=== PATIENT | female | born 1990 | race Caucasian/White ===

== ENCOUNTER 2018-04-23 06:43 | Inpatient (IN) | payer OTHER ==
--- NOTE | 2018-04-23 08:17 | HP ---
General Information - Reason for Visit SROM, active labor - General Information Maternal Age: 27 Grav: 1 Para: 0 SAB: 0 IEA: 0 Estimated Due Date: 05/13/18 Determined By: LMP Maternal Blood Type and Rh: A Positive - Results this Serology/RPR Result: Non-Reactive Rubella Result: Immune HBsAg Result: Negative HIV Result: Negative GBS Culture Result: Negative Past Medical History Delivery History: See Records - Pertinent Past Medical History: See Records - hypothyroidism Pertinent Past Surgical History: See Records - wisdom tooth extraction Pertinent Family History: Non-Contributory - Antepartal Records Antepartal Records: Reviewed, Complicated by: - hypothyroidism, GDM Review of Systems Constitutional: Uncomfortable - contractions CV Complaint: No Respiratory: Shortness of Breath: No Gastrointestinal: Normal Bowel Movement, Nausea Genitourinary: Leaking Fluid, No Dysuria, No Bleeding Musculoskeletal: No Epigastric Pain, Contractions Neurological: No Headache, No Visual Changes Movement: Normal Exam Allergies/Adverse Reactions: Allergies No Known Allergies Allergy (Verified 04/20/18 13:01) T- 98.0, P-94, R-20, BP- 105/78, O2- 99% - Measurements Height: 5 ft 2 in Weight: 89.811 kg Weight in lbs: 198.673647 Body Mass Index (BMI): 36.2 Pre- Weight: 74.843 kg Weight Gained This : 33 lbs and 0 ozs - Exam Breast: Breast Exam Deferred CVA: No CVA Tenderness Extremities: Edema - mild bilateral pedal edema Heart: Normal Rhythm/Heart Sounds HEENT: No Significant Findings Lungs: Clear Bilaterally Rectal: Rectal Exam Deferred - large hemorrhoid visible, non-thrombosed Reflexes: DTR 2+ Thyroid: No Thyromegaly - Abdominal Exam Abdomen Exam: Non-Tender, Fundal Height Consistent with Dates - Ultrasound/Biophysical Profile Ultrasound Status: Not Done Targeted Exam Findings See L&D Outpatient Visit Provider Note for Findings: N/A Estimated Weight: 8# Cervical Exam: 7cm - on arrival Effacement: 100% Station: +1 Presenting Part: Vertex Membrane Status: SROM Amniotic Fluid Evaluation: Gross Rupture Bleeding/Discharge: None EFM Findings - External Monitor Findings Baseline Heart Rate: 120 External Monitor Findings: Accelerations Present, No Pattern of Variable or Late Decelerations - occasional small variable decels, Variability Moderate, Baseline Stable Contractions: Regular, Strong, >90 Seconds Contraction Frequency: 2-3 minutes Assessment/Plan - Assessment 27 year old at 37 1/7 weeks gestation with hx hypothyroidism and GDM in active labor with SROM of clear fluid, no evidence of acidemia - Obstetrical Risk Factors Obstetrical Risk Factors: Gestational Diabetes - Plan Plan: Admit - Anticipate Vaginal Delivery - Date/Time of Admission Date of Admission: 04/23/18 Time of Admission: 07:14
[2018-04-23] MEDS ORDERED: Witch Hazel PAD* JAR TOPICAL PRN (09:08)
[2018-04-23] MEDS ORDERED: OXYTOCIN* 10 UNITS/ML 1 ML VIAL IM ONE (09:08)
[2018-04-23] MEDS ORDERED: Glycerin ADULT SUPP PR PRN (09:08)
[2018-04-23] MEDS ORDERED: Dibucaine 1% 28.35 GM TUBE PR PRN (09:08)
--- NOTE | 2018-04-23 09:25 | PROCNOTE ---
[facility] OB: Delivery Note - Delivery A Date of : 04/23/18 Time of : 08:33 [place] Sex: Male Score 1 Minute: 9 Score 5 Minutes: 9 Gestational Age in Weeks and Days at Delivery: 37 Weeks and 1 Days Delivery Method: Spontaneous Vaginal Labor: Spontaneous Did Patient attempt ?: N/A, No Previous Amniotic Fluid: Clear Estimated Blood Loss: 300 Anesthesia/Analgesia: Nitrous-Labor Delivered By: Tico Villela - Nursery Level of Nursery: Regular/Bedside - Perineum Perineal Injury: 2nd Degree Perineal Injury Comment: repaired with 3-0 polysorb under local infiltration 1% lidocaine Perineal Repair: By Delivering Practioner - Events Delivery Events of Note: Pitocin Only After Delivery - 10 units IM pitocin after delivery - Additional Delivery Notes Additional Delivery Notes: Pt admitted in active labor following spontaneous rupture of membranes to clear fluid. Expected progression to complete. Pushed x 40 min to liveborn male. Slow, controlled delivery of head. ALEXSANDER to LOT. Tight shoulders followed with strong maternal push in Neptali. Cord around shoulder x 1 looped off after delivery. vigorous with spontaneous cry. HR > 110bpm. Delivered to maternal abdomen. Cord clamped x 2 and cut by FOB when pulsations ceased. Spontaneous delivery intact placenta. 3VC. Membranes complete. Fundus firm to massage but atonic when hand removed. 10units IM pitocin given. Fundus firm to massage and remained firm. Repair as above. EBL 300mL. At time of note mother and infant in stable condition. Planning to breast feed.
[2018-04-23] MEDS: Ibuprofen TAB* 600 MG PO PRN ×3 (09:27→21:45)
[2018-04-23] MEDS: Levothyroxine TAB* 25 MCG TAB PO SCH (12:30)
[2018-04-23] MEDS ORDERED: Simethicone TAB* 80 MG TAB.CHEW PO SCH (12:30)
[2018-04-23] MEDS: Docusate CAP* 100 MG PO SCH ×2 (14:30→21:45)
[2018-04-23] MEDS: Acetaminophen TAB* 325 MG PO PRN (18:08)
[2018-04-24] MEDS: Ibuprofen TAB* 600 MG PO PRN ×3 (05:16→20:29)
[2018-04-24 07:31] LABS: ABS Basophils 0 10^3/ul (0-0.2); ABS Eosinophils 0.2 10^3/ul (0-0.6); ABS Lymphocytes 2.8 10^3/ul (1.0-4.8); ABS Monocytes 0.9 10^3/ul (0-0.8); ABS Neutrophils 8.1 10^3/ul (1.5-7.7); ABS Nucleated RBC 0 10^3/ul; Eosinophil % 1.9 % (0-6); Hematocrit 29 % (35-47); Hemoglobin 9.9 g/dl (12.0-16.0); Lymphocyte % 23.2 % (25-47); Mean Corpuscular HGB Conc 34 g/dl (31-36); Mean Corpuscular Hemoglobin 28 pg (27-31); Mean Corpuscular Volume 83 fL (80-97); Mean Platelet Volume 7.5 um3 (7.4-10.4); Nucleated Red Blood Cells % 0.1; Platelet Count 212 10^3/ul (150-450); Red Blood Count 3.47 10^6/ul (4.00-5.40); Red Cell Distribution Width 14 % (10.5-15); White Blood Count 12.1 10^3/ul (3.5-10.8)
[2018-04-24] MEDS: Ferrous Gluconate TAB* 324 MG TAB PO SCH ×2 (09:13→20:29)
[2018-04-24] MEDS: Levothyroxine TAB* 25 MCG TAB PO SCH (09:13)
[2018-04-24] MEDS: Docusate CAP* 100 MG PO SCH ×3 (09:13→20:29)
[2018-04-25 08:12] VITALS: BP 119/66
[2018-04-25] MEDS: Acetaminophen TAB* 325 MG PO PRN (08:49)
[2018-04-25] MEDS: Ferrous Gluconate TAB* 324 MG TAB PO SCH (08:50)
[2018-04-25] MEDS: Docusate CAP* 100 MG PO SCH (08:50)
[2018-04-25] MEDS: Levothyroxine TAB* 25 MCG TAB PO SCH (08:50)
== END 2018-04-25 13:10 | disposition home or self-care (01) | DRG 807 ==
LOC: MCHOBOUT 06:43 → MCHOB 07:14
PROVIDERS: ADMIT Midwife; ATTEND Midwife
PROC: 10E0XZZ Delivery of Products of Conception, External Approach (ICD-10-PCS; principal; 2018-04-23)
PROC: 0KQM0ZZ Repair Perineum Muscle, Open Approach (ICD-10-PCS; 2018-04-23)
DX: O60.23X1 Term delivery with preterm labor, third trimester, fetus 1 (principal); Z37.0 Single live birth; O24.429 Gestational diabetes mellitus in childbirth, unspecified control; O75.89 Other specified complications of labor and delivery; O99.284 Endocrine, nutritional and metabolic diseases complicating childbirth; E03.9 Hypothyroidism, unspecified; O70.1 Second degree perineal laceration during delivery; O69.89X0 Labor and delivery complicated by other cord complications, not applicable or unspecified; Z3A.37 37 weeks gestation of pregnancy
CPT/HCPCS: 36415; 85025; A9270-GY; J2590

== ENCOUNTER 2020-07-07 20:10 | Inpatient (IN) ==
[2020-07-07] MEDS ORDERED: Lactated Ringers 1000 ml BAG 1,000 ML IV ONE (20:45)
[2020-07-07] MEDS ORDERED: Buffered Lidocaine 1% SYRIN 1 ml INTRADERM ONE (20:45)
[2020-07-07] MEDS ORDERED: Lactated Ringers 1000 ml BAG 1,000 ML IV SCH ×2 (21:00→23:45)
[2020-07-07 22:22] LABS: Urine Benzodiazepine Screen None Detected (None Detect); Urine Cannabinoids Screen None Detected (None Detect); Urine Opiates Screen None Detected (None Detect)
[2020-07-07 22:36] LABS: ABS Basophils 0.1 10^3/ul (0-0.2); ABS Eosinophils 0.1 10^3/ul (0-0.6); ABS Lymphocytes 1.8 10^3/ul (1.0-4.8); ABS Monocytes 0.9 10^3/ul (0-0.8); Hematocrit 36 % (35-47); Lymphocyte % 16.7 %; Mean Corpuscular HGB Conc 34 g/dL (31-36); Mean Corpuscular Hemoglobin 25 pg (27-31); Mean Corpuscular Volume 73 fL (80-97); Mean Platelet Volume 8.4 fL (7.4-10.4); Platelet Count 297 10^3/uL (150-450); Red Blood Count 4.91 10^6 /uL (3.70-4.87); Red Cell Distribution Width 15 % (10-15); White Blood Count 10.9 10^3/uL (3.5-10.8)
[2020-07-07] MEDS ORDERED: Oxytocin in LR 0 UNITS/0 ML BAG IVPB ONE (22:41)
[2020-07-07] MEDS ORDERED: Witch Hazel PAD JAR TOPICAL PRN (23:53)
[2020-07-07] MEDS ORDERED: Dibucaine 1% OINT 28.35 GM TUBE PR PRN (23:53)
[2020-07-07] MEDS ORDERED: Glycerin ADULT 2.4 gm SUPP PR PRN (23:53)
[2020-07-08 07:25] LABS: ABS Basophils 0.1 10^3/ul (0-0.2); ABS Eosinophils 0.1 10^3/ul (0-0.6); ABS Lymphocytes 1.8 10^3/ul (1.0-4.8); ABS Monocytes 1.1 10^3/ul (0-0.8); ABS Neutrophils 11.5 10^3/ul (1.5-7.7); Eosinophil % 0.5 %; Hematocrit 32 % (35-47); Hemoglobin 10.3 g/dL (12.0-16.0); Lymphocyte % 12.6 %; Mean Corpuscular HGB Conc 32 g/dL (31-36); Mean Corpuscular Hemoglobin 24 pg (27-31); Mean Corpuscular Volume 75 fL (80-97); Mean Platelet Volume 8.5 fL (7.4-10.4); Platelet Count 255 10^3/uL (150-450); Red Blood Count 4.24 10^6 /uL (3.70-4.87); Red Cell Distribution Width 15 % (10-15); White Blood Count 14.6 10^3/uL (3.5-10.8)
[2020-07-09 08:21] VITALS: BP 122/62
== END 2020-07-09 11:55 | disposition home or self-care (01) | DRG 560 ==
LOC: MCHOBOUT 20:10 → MCHOB 20:19
PROVIDERS: ADMIT Midwife; ATTEND Midwife